=== PATIENT | female | born 1970 | race African-American/Black ===

== ENCOUNTER 2022-02-13 17:07 | Emergency (ER) | payer BC ==
[2022-02-13] MEDS ORDERED: Acetaminophen 500 MG TAB ONE (17:50)
[2022-02-13 17:53] LABS: Prothrombin Time 13.2 sec (12.0-14.7)
[2022-02-13 17:54] LABS: Hemoglobin 9.1 g/dL (12.0-16.0); Mean Corpuscular HGB CONC 30.4 g/dL (32.0-36.0); Mean Corpuscular Hemoglobin 21.7 pg (27.0-31.0); Mean Corpuscular Volume 71.2 fL (78.0-98.0); Mean Platelet Volume 8.6 fL (7.4-10.4); PTT 44.7 sec (22.9-36.1); Platelet Count 294 thou/uL (130-400); Red Blood Cell (RBC) Count 4.18 mill/uL (4.20-5.40); White Blood Cell (WBC) Count 12.8 thou/uL (4.8-10.8)
[2022-02-13 18:13] LABS: Bilirubin Negative (Negative); Blood, Urine Large (Negative); Clarity Cloudy (Clear); Glucose, Urine (Dipstick) Negative (Negative); Ketone, Urine Negative (Negative); Leukocyte Large (Negative); Nitrite Positive (Negative); Protein, Urine (Dipstick) > or equal to 300 mg/dL (Neg-Trace); Specific Gravity, Urine 1.015 (1.005-1.030); pH, Urine 5.5 (5.0-9.0)
[2022-02-13 18:18] LABS: Bacteria/HPF 3+ HPF (None Seen); Squamous Epithelial 0-3 HPF (0-3); WBC/HPF Greater Than 50 HPF (0-3)
[2022-02-13 18:19] LABS: Band 1 % (5-11); Eosinophils 2 % (0-10); Hypochromia SLIGHT = 6-15 cells (100X) (0-5/hpf); Lymphocytes 12 % (21-51); MDiff Complete? YES; Microcytosis SLIGHT = 6-15 cells (100X) (0-5/hpf); Monocytes 9 % (0-10); Neutrophil 75 % (42-75)
[2022-02-13 18:22] LABS: AST (SGOT) 22 U/L (5-34); Potassium 4.1 mmol/L (3.5-5.1)
[2022-02-13] MEDS ORDERED: cefTRIAXone\\ROCEPHIN 2 GM VIAL ONE (18:22)
[2022-02-13] MEDS ORDERED: Sodium Chloride 0.9% 100 ML ONE (18:24)
[2022-02-13 18:25] LABS: ALT (SGPT) 29 U/L (8-55); Albumin 3.8 g/dL (3.5-5.0); Alkaline Phosphatase 76 U/L (40-110); Anion Gap 16 mmol/L (10-20); BUN (Urea Nitrogen) 9 mg/dL (9.8-20.1); Bilirubin, Total 0.5 mg/dL (0.2-1.2); Calc. Creatinine Clearance 0 mL/min (70-130); Calcium 8.8 mg/dL (7.8-10.44); Carbon Dioxide 16 mmol/L (22-29); Chloride 105 mmol/L (98-107); Estimated GFR 46; Glucose 110 mg/dL (70-105); Sodium 133 mmol/L (136-145)
[2022-02-13 18:28] LABS: Globulin 3.9 g/dL (2.4-3.5); Protein, Total 7.7 g/dL (6.0-8.3)
== END 2022-02-13 19:26 | disposition home or self-care (01) ==
LOC: BURERS 17:07
DX: N30.01 Acute cystitis with hematuria (principal); I10 Essential (primary) hypertension; F17.210 Nicotine dependence, cigarettes, uncomplicated
CPT/HCPCS: 36415; 71045; 74176; 80053; 81003; 81015; 83605; 85025; 85610; 85730; 87040; 87077; 87149; 87186; 96374; J0696; J3490

== ENCOUNTER 2022-02-17 18:21 | Emergency (ER) | payer BC | END 2022-02-17 19:25 | disposition home or self-care (01) | LOC: BURERS 18:21 | DX: Z00.00 Encounter for general adult medical examination without abnormal findings (principal); I10 Essential (primary) hypertension; F17.210 Nicotine dependence, cigarettes, uncomplicated; Z79.899 Other long term (current) drug therapy | CPT/HCPCS: 36415; 87040; 99283 ==

== ENCOUNTER 2022-07-01 17:44 | Emergency (ER) | payer BC | END 2022-07-01 18:28 | disposition home or self-care (01) | LOC: BURERS 17:44 | DX: S39.012A Strain of muscle, fascia and tendon of lower back, initial encounter (principal); I10 Essential (primary) hypertension; F17.210 Nicotine dependence, cigarettes, uncomplicated; X50.0XXA Overexertion from strenuous movement or load, initial encounter; Y99.0 Civilian activity done for income or pay | CPT/HCPCS: 99283 ==

== ENCOUNTER 2023-01-04 07:40 | Emergency (ER) | payer BC | END 2023-01-04 08:31 | disposition home or self-care (01) | LOC: BURERS 07:40 | DX: S00.86XA Insect bite (nonvenomous) of other part of head, initial encounter (principal); S10.96XA Insect bite of unspecified part of neck, initial encounter; I10 Essential (primary) hypertension; F17.210 Nicotine dependence, cigarettes, uncomplicated; W57.XXXA Bitten or stung by nonvenomous insect and other nonvenomous arthropods, initial encounter | CPT/HCPCS: 99282 ==

== ENCOUNTER 2023-12-16 21:39 | Emergency (ER) | payer BC ==
[2023-12-18 11:00] LABS: Syphilis Antibody Nonreactive (Nonreactive); Syphilis Antibody Index 0.28 S/CO (<1.00 Non-Reactive)
== END 2023-12-16 23:05 | disposition home or self-care (01) ==
LOC: BURERS 21:39
DX: L20.9 Atopic dermatitis, unspecified (principal); F17.210 Nicotine dependence, cigarettes, uncomplicated; I10 Essential (primary) hypertension
CPT/HCPCS: 36415; 86780; 99283

== ENCOUNTER 2024-05-25 19:45 | Emergency (ER) | payer BC ==
[2024-05-25] MEDS ORDERED: Ketorolac Tromethamine 30 MG (1 mL) VIAL ONE (20:12)
[2024-05-25 20:24] LABS: #Basophils 0.2 thou/uL (0.0-0.2); #Eosinophils 0.1 thou/uL (0.0-0.7); #Lymphocytes 1.3 thou/uL (1.20-3.40); #Monocytes 0.7 thou/uL (0.11-0.59); #Neutrophils 6.8 thou/uL (1.40-6.50); %Basophils 1.7 % (0.0-1.0); %Eosinophils 1.3 % (0.0-10.0); %Lymphocytes 13.9 % (21.0-51.0); %Monocytes 7.6 % (0.0-10.0); %Neutrophils 75.5 % (42.0-75.0); Hematocrit 27.9 % (36.0-47.0); Hemoglobin 8.5 g/dL (12.0-16.0); Mean Corpuscular HGB CONC 30.6 g/dL (32.0-36.0); Mean Corpuscular Hemoglobin 21.9 pg (27.0-31.0); Mean Corpuscular Volume 71.5 fl (78.0-98.0); Mean Platelet Volume 6.5 fL (7.4-10.4); Platelet Count 263 10x3/uL (130-400); RBC Distribution Width 14.6 % (11.5-14.5)
[2024-05-25 20:36] LABS: BHCG - Serum Negative (NEGATIVE); Pregs Control Bar Appear? YES (CONTROL BAR)
[2024-05-25 20:37] LABS: Pregs Control Background? CLEAR/WHITE (CLR/WHITE)
[2024-05-25 20:41] LABS: MDiff Complete? YES; Microcytosis SLIGHT = 6-15 cells (100X) (0-5/hpf); Platelet Adequacy Comment Appears Adequate
[2024-05-25 20:47] LABS: ALT (SGPT) 16 U/L (8-55); AST (SGOT) 22 U/L (5-34); Albumin 3.4 g/dL (3.5-5.0); Alkaline Phosphatase 53 U/L (40-110); Anion Gap 16 mmol/L (10-20); BUN (Urea Nitrogen) 24 mg/dL (9.8-20.1); Bilirubin, Total 0.2 mg/dL (0.2-1.2); Calc. Creatinine Clearance 0 mL/min (70-130); Calcium 8.7 mg/dL (7.8-10.44); Carbon Dioxide 17 mmol/L (22-29); Chloride 107 mmol/L (98-107); Estimated GFR 29; Globulin 3.7 g/dL (2.4-3.5); Glucose 103 mg/dL (70-105); Lipase 38 U/L (8-78); Potassium 5.2 mmol/L (3.5-5.1); Protein, Total 7.1 g/dL (6.0-8.3); Sodium 135 mmol/L (136-145)
[2024-05-25 21:34] LABS: Anion Gap 15 mmol/L (10-20); BUN (Urea Nitrogen) 24 mg/dL (9.8-20.1); Calc. Creatinine Clearance 0 mL/min (70-130); Carbon Dioxide 19 mmol/L (22-29); Chloride 107 mmol/L (98-107); Estimated GFR 30; Glucose 110 mg/dL (70-105); Potassium 4.8 mmol/L (3.5-5.1); Sodium 136 mmol/L (136-145)
[2024-05-25] MEDS ORDERED: HYDROcodone/Acetaminophen 5/325 mg Tablet ONE (21:39)
[2024-05-25 21:40] LABS: Bilirubin Negative (Negative); Blood, Urine Moderate (Negative); Clarity Slightly Cloudy (Clear); Glucose, Urine (Dipstick) Negative (Negative); Ketone, Urine Negative (Negative); Leukocyte Trace (Negative); Nitrite Negative (Negative); Protein, Urine (Dipstick) > or equal to 300 mg/dL (Neg-Trace); Urobilinogen 0.2 mg/dL (Less than 2)
[2024-05-25 22:27] LABS: Bacteria/HPF 1+ HPF (None Seen); CAUTI Indications for Culture Pelvic or flank pain; RBC/HPF 21-50 HPF (0-3); Squamous Epithelial 0-3 HPF (0-3); Trichomonas/HPF 1+ HPF (None Seen)
[2024-05-25 22:29] LABS: Urine Culture Reflex No No
[2024-05-27 06:05] LABS: Chlam.trachomatis by PCR,Urine Not Detected (NotDetected); GC N.gonorrhoeae PCR,UrineVOID Not Detected (NotDetected)
== END 2024-05-25 22:46 | disposition home or self-care (01) ==
LOC: BURERS 19:45
DX: N39.0 Urinary tract infection, site not specified (principal); D64.9 Anemia, unspecified; N85.8 Other specified noninflammatory disorders of uterus; N28.1 Cyst of kidney, acquired; A59.9 Trichomoniasis, unspecified; F17.210 Nicotine dependence, cigarettes, uncomplicated; I10 Essential (primary) hypertension; Z55.6 Problems related to health literacy; Z79.899 Other long term (current) drug therapy
CPT/HCPCS: 36415; 74176; 80053; 81001; 83690; 84703; 85025; 87491; 87591; 96361; 96374; J1885

== ENCOUNTER 2024-11-27 14:18 | Emergency (ER) | payer BC ==
[2024-11-27 14:45] LABS: Bilirubin Negative (Negative); Blood, Urine Trace (Negative); Clarity Cloudy (Clear); Glucose, Urine (Dipstick) Negative (Negative); Ketone, Urine Negative (Negative); Leukocyte Moderate (Negative); Nitrite Positive (Negative); Protein, Urine (Dipstick) 100 mg/dL (Neg-Trace); Urobilinogen 0.2 mg/dL (Less than 2); pH, Urine 5.5 (5.0-9.0)
[2024-11-27 14:46] LABS: Pregnancy Test - Urine (BHCG) Negative (Negative); Pregu Control Background? CLEAR/WHITE (CLR/WHITE); Pregu Control Bar Appear? YES (CONTROL BAR)
[2024-11-27 14:50] LABS: Bacteria/HPF 2+ HPF (None Seen); CAUTI Indications for Culture Dysuria,urgency,freq; RBC/HPF None Seen HPF (0-3); Squamous Epithelial 0-3 HPF (0-3); WBC/HPF 21-50 HPF (0-3)
[2024-11-27 14:51] LABS: Urine Culture Reflex Yes Yes
== END 2024-11-27 15:09 | disposition home or self-care (01) ==
LOC: BURERS 14:18
DX: N39.0 Urinary tract infection, site not specified (principal); D25.9 Leiomyoma of uterus, unspecified; N28.1 Cyst of kidney, acquired; I12.9 Hypertensive chronic kidney disease with stage 1 through stage 4 chronic kidney disease, or unspecified chronic kidney disease; N18.9 Chronic kidney disease, unspecified; F17.210 Nicotine dependence, cigarettes, uncomplicated; Z55.6 Problems related to health literacy
CPT/HCPCS: 81001; 81025; 87077; 87086; 87186; 99283